=== PATIENT | female | born 1970 | race American Indian/Alaskan Native ===

== ENCOUNTER 2019-01-14 13:20 | Emergency (ER) | payer OTHER ==
[2019-01-14 13:27] VITALS: BP 180/95
--- NOTE | 2019-01-14 13:40 | Emergency Department Report ---
ED Recheck HPI - General Chief Complaint: Medical Clearance Stated Complaint: HBP/DIZZY Time Seen by Provider: 01/14/19 13:26 Source: patient Mode of arrival: Ambulatory Limitations: No Limitations - History of Present Illness Initial Comments: This is a 48-year-old female nontoxic, well in appearance with no signs of distress noted that presents with hypertension medication refill. Patient stated she has been out of her Norvasc 5 mg daily, Lisinopril 20 mg daily, and Metropolol 25 mg daily. Patient denies any symptoms. Patient denies any facial swelling, fever, chills, headache, nausea, vomiting, chest pain or shortness of breathe. Patient denies any allergies. -: days(s) (2) Returns Today for: request for prescription Symptoms Since Prior Visit: no new symptoms, improved Associated Symptoms: none. denies: fever, chills, chest pain, shortness of breath, rash, malaise, nasuea, abdominal pain - Related Data Previous Rx's Medication Instructions Recorded Last Taken Type Lisinopril 20 mg PO DAILY #30 tablet 01/14/19 Unknown Rx Metoprolol [Lopressor TAB] 25 mg PO DAILY #30 tablet 01/14/19 Unknown Rx amLODIPine [Norvasc] 5 mg PO DAILY #30 tab 01/14/19 Unknown Rx Allergies Allergy/AdvReac Type Severity Reaction Status Date / Time No Known Allergies Allergy Unverified 01/14/19 13:23 ED Review of Systems ROS: Stated complaint: HBP/DIZZY Other details as noted in HPI Constitutional: denies: chills, fever Eyes: denies: eye pain, eye discharge, vision change ENT: denies: ear pain, throat pain Respiratory: denies: cough, shortness of breath, wheezing Cardiovascular: denies: chest pain, palpitations Endocrine: no symptoms reported Gastrointestinal: denies: abdominal pain, nausea, diarrhea Genitourinary: denies: urgency, dysuria, discharge Musculoskeletal: denies: back pain, joint swelling, arthralgia Skin: denies: rash, lesions Neurological: denies: headache, weakness, paresthesias Psychiatric: denies: anxiety, depression Hematological/Lymphatic: denies: easy bleeding, easy bruising ED Past Medical Hx - Past Medical History Previous Medical History?: Yes Hx Hypertension: Yes Hx Headaches / Migraines: Yes - Surgical History Past Surgical History?: Yes Additional Surgical History: C section - Social History Smoking Status: Never Smoker Substance Use Type: None - Medications Home Medications: Home Medications Medication Instructions Recorded Confirmed Last Taken Type Lisinopril 20 mg PO DAILY #30 tablet 01/14/19 Unknown Rx Metoprolol [Lopressor TAB] 25 mg PO DAILY #30 tablet 01/14/19 Unknown Rx amLODIPine [Norvasc] 5 mg PO DAILY #30 tab 01/14/19 Unknown Rx ED Physical Exam - General Limitations: No Limitations General appearance: alert, in no apparent distress - Head Head exam: Present: atraumatic, normocephalic - Eye Eye exam: Present: normal appearance - Neck Neck exam: Present: normal inspection, full ROM. Absent: tenderness, meningismus, lymphadenopathy - Respiratory Respiratory exam: Present: normal lung sounds bilaterally. Absent: respiratory distress, wheezes, rales, rhonchi, stridor, chest wall tenderness, accessory muscle use, decreased breath sounds, prolonged expiratory - Cardiovascular Cardiovascular Exam: Present: regular rate, normal rhythm, normal heart sounds. Absent: systolic murmur, diastolic murmur, rubs, gallop - Extremities Exam Extremities exam: Present: normal inspection, full ROM - Back Exam Back exam: Present: normal inspection, full ROM - Neurological Exam Neurological exam: Present: alert, oriented X3 - Psychiatric Psychiatric exam: Present: normal affect, normal mood - Skin Skin exam: Present: warm, dry, intact, normal color. Absent: rash ED Course Vital Signs 01/14/19 13:26 Temperature 97.7 F Pulse Rate 80 Respiratory 20 Rate Blood Pressure 180/95 O2 Sat by Pulse 100 Oximetry - Reevaluation(s) Reevaluation #1: 01/14/19 13:42 Patient is speaking in full sentences with no signs of distress noted. ED Recheck MDM - Medical Decision Making As per ACEP, does not recommened treatment in the ED due to asymptotic and has PCP. Patient was instructed to Follow-up with a primary care doctor in 3-5 days or if symptoms worsen and continue return to emergency room as soon as possible. At time of discharge, the patient does not seem toxic or ill in ap pearance. No acute signs of distress noted. Patient agrees to discharge treatment plan of care. No further questions noted by the patient. Critical care attestation.: If time is entered above; I have spent that time in minutes in the direct care of this critically ill patient, excluding procedure time. ED Disposition Clinical Impression: Medication refill Hypertension Qualifiers: Hypertension type: unspecified Qualified Code(s): I10 - Essential (primary) hypertension Disposition: TO HOME OR SELFCARE Is pt being admited?: No Does the pt Need Aspirin: No Condition: Stable Instructions: Hypertension (ED), Low Sodium Diet (ED) Additional Instructions: Follow-up with a primary care doctor in 3-5 days or if symptoms worsen and continue return to emergency room as soon as possible. Prescriptions: Lisinopril 20 mg PO DAILY #30 tablet Metoprolol [Lopressor TAB] 25 mg PO DAILY #30 tablet amLODIPine [Norvasc] 5 mg PO DAILY #30 tab Referrals: PRIMARY CAREMD [Referring] - 3-5 Days STACY ASH MD [Staff Physician] - 3-5 Days [facility] [Outside] - 3-5 Days [facility] [Outside] - 3-5 Days Forms: Work/School Release Form(ED)
== END 2019-01-14 13:58 | disposition home or self-care (01) ==
LOC: ED 13:20
DX: I10 Essential (primary) hypertension (principal); Z76.0 Encounter for issue of repeat prescription
CPT/HCPCS: 99282

== ENCOUNTER 2019-06-09 20:39 | Emergency (ER) | payer OTHER ==
--- NOTE | 2019-06-09 20:50 | Emergency Department Report ---
Blank Doc - Documentation Documentation: This is a 48-year-old female that presents with uncontrolled htn and bilatreal tingling sensation to hands. This initial assessment/diagnostic orders/clinical plan/treatment(s) is/are subject to change based on patient's health status, clinical progression and re- assessment by fellow clinical providers in the ED. Further treatment and workup at subsequent clinical providers discretion. Patient/guardians urged not to elope from the ED as their condition may be serious if not clinically assessed and managed. Initial orders include: 1- Patient sent to [facility] for further evaluation and treatment 2- labs
[2019-06-09 21:07] VITALS: BP 141/90
[2019-06-09 21:09] LABS: Basophils # (Auto) 0.1 K/mm3 (0.0-0.1); Basophils % (Auto) 0.9 % (0.0-1.8); Eosinophils # (Auto) 0.3 K/mm3 (0.0-0.4); Eosinophils % (Auto) 3.1 % (0.0-4.3); Hematocrit 34.2 % (30.3-42.9); Hemoglobin 11.4 gm/dl (10.1-14.3); Lymphocytes # (Auto) 3.3 K/mm3 (1.2-5.4); Lymphocytes % (Auto) 40.6 % (13.4-35.0); Mean Corpuscular HGB Conc 33 % (30-34); Mean Corpuscular Volume 89 fl (79-97); Monocytes # (Auto) 0.8 K/mm3 (0.0-0.8); Monocytes % (Auto) 9.5 % (0.0-7.3); Platelet Count 315 K/mm3 (140-440); Red Blood Count 3.83 M/mm3 (3.65-5.03); Red Cell Distribution Width 14.5 % (13.2-15.2)
[2019-06-09 21:55] LABS: BUN/Creatinine Ratio 19; Blood Urea Nitrogen 15 mg/dL (7-17); Calcium 9.6 mg/dL (8.4-10.2); Hemolysis Index 4
--- NOTE | 2019-06-09 23:06 | Emergency Department Report ---
ED General Adult HPI - General Chief complaint: High BP Stated complaint: HBP,TINGLING IN BOTH HANDS Time Seen by Provider: 06/09/19 20:50 Source: patient Mode of arrival: Ambulatory Limitations: No Limitations - History of Present Illness Initial comments: 48-year-old -[place] female presents to the emergency room stating she ran out of her blood pressure medications 3 days ago. Patient also complains of tingling to hands and her to for 3 weeks. Patient reports that she has a history of migraines and hypertension. Denies any shortness of breathing or chest pain. Onset/Timin -: week(s) Location: upper extremity (hands tingling and hurst) Radiation: non-radiation Severity scale (0 -10): 8 Quality: aching Consistency: intermittent Associated Symptoms: denies other symptoms. denies: chest pain, cough, shortness of breath Treatments Prior to Arrival: none - Related Data Previous Rx's Medication Instructions Recorded Last Taken Type Lisinopril 20 mg PO DAILY #30 tablet 01/14/19 Unknown Rx Metoprolol [Lopressor TAB] 25 mg PO DAILY #30 tablet 01/14/19 Unknown Rx amLODIPine [Norvasc] 5 mg PO DAILY #30 tab 01/14/19 Unknown Rx amLODIPine [Norvasc] 5 mg PO DAILY 14 Days #14 tab 06/09/19 Unknown Rx Allergies Allergy/AdvReac Type Severity Reaction Status Date / Time No Known Allergies Allergy Unverified 01/14/19 13:23 ED Review of Systems ROS: Stated complaint: HBP,TINGLING IN BOTH HANDS Other details as noted in HPI Comment: All other systems reviewed and negative ED Past Medical Hx - Past Medical History Previous Medical History?: Yes Hx Hypertension: Yes Hx Headaches / Migraines: Yes - Surgical History Past Surgical History?: Yes Additional Surgical History: C section x3. tonsil - Social History Smoking Status: Never Smoker Substance Use Type: None - Medications Home Medications: Home Medications Medication Instructions Recorded Confirmed Last Taken Type Lisinopril 20 mg PO DAILY #30 tablet 01/14/19 Unknown Rx Metoprolol [Lopressor TAB] 25 mg PO DAILY #30 tablet 01/14/19 Unknown Rx amLODIPine [Norvasc] 5 mg PO DAILY #30 tab 01/14/19 Unknown Rx amLODIPine [Norvasc] 5 mg PO DAILY 14 Days #14 tab 06/09/19 Unknown Rx ED Physical Exam - General Limitations: No Limitations General appearance: alert, in no apparent distress - Head Head exam: Present: atraumatic, normocephalic - Eye Eye exam: Present: normal appearance - ENT ENT exam: Present: mucous membranes moist - Neck Neck exam: Present: normal inspection ED Course Vital Signs 06/09/19 20:49 Temperature 98.1 F Pulse Rate 81 Respiratory 18 Rate Blood Pressure 141/90 O2 Sat by Pulse 100 Oximetry ED Medical Decision Making - Lab Data Result diagrams: 06/09/19 20:59 06/09/19 20:59 - Medical Decision Making 48-year-old -[place] female presents to the emergency room stating she ran out of her blood pressure medications 3 days ago. Patient also complains of tingling to hands and her to for 3 weeks. Patient reports that she has a history of migraines and hypertension. Denies any shortness of breathing or chest pain. Prescription for amlodipine 5 mg for 2 weeks and patient is to follow-up at the [facility] which is her primary care provider. Patient can take Tylenol and/or Motrin for finger cramping and pain with bending. Patient is to follow-up with her primary care provider to discuss this new problem. Patient's labs were all stable. Critical care attestation.: If time is entered above; I have spent that time in minutes in the direct care of this critically ill patient, excluding procedure time. ED Disposition Clinical Impression: HTN (hypertension), Pain in finger of both hands Disposition: DC-01 TO HOME OR SELFCARE Is pt being admited?: No Does the pt Need Aspirin: No Condition: Stable Instructions: Hypertension (ED), Osteoarthritis (ED) Additional Instructions: Please try taking Tylenol and/or Motrin for pain in hands and fingers. Take your blood pressure medication and to follow-up which her primary care provider. Prescriptions: amLODIPine [Norvasc] 5 mg PO DAILY 14 Days #14 tab Referrals: [facility] [Outside] - 3-5 Days
== END 2019-06-09 23:10 | disposition home or self-care (01) ==
LOC: ED 20:39
DX: I10 Essential (primary) hypertension (principal); R20.2 Paresthesia of skin; M79.645 Pain in left finger(s); M79.646 Pain in unspecified finger(s); G43.909 Migraine, unspecified, not intractable, without status migrainosus
CPT/HCPCS: 36415; 80048; 85025

== ENCOUNTER 2019-07-13 16:53 | Observation (INO) | payer OTHER ==
--- NOTE | 2019-07-13 17:42 | Event Note ---
ED Screening Note ED Screening Note: pt states she has tingling on the left side that began yesterday around 1PM never had before pain under the left breast, also tingling no SOB, no N/V, no vision changes, no weakness LNMP: july 04, tubal ligation PMHx HTN, migraines takes amlodipine and lisinopril non smoker no drinker no drug use This initial assessment/diagnostic orders/clinical plan/treatment(s) is/are subject to change based on patients health status, clinical progression and re- assessment by fellow clinical providers in the ED. Further treatment and workup at subsequent clinical providers discretion. Patient/guardian urged not to elope from the ED as their condition may be serious if not clinically assessed and man aged. Initial orders include: labs, XR chest, CT head, EKG, UA
[2019-07-13 18:21] LABS: Basophils # (Auto) 0.1 K/mm3 (0.0-0.1); Basophils % (Auto) 0.6 % (0.0-1.8); Eosinophils # (Auto) 0.2 K/mm3 (0.0-0.4); Eosinophils % (Auto) 2.6 % (0.0-4.3); Hematocrit 37.6 % (30.3-42.9); Hemoglobin 12.4 gm/dl (10.1-14.3); Lymphocytes # (Auto) 2.9 K/mm3 (1.2-5.4); Mean Corpuscular HGB Conc 33 % (30-34); Mean Corpuscular Volume 88 fl (79-97); Monocytes # (Auto) 0.7 K/mm3 (0.0-0.8); Monocytes % (Auto) 7.2 % (0.0-7.3); Platelet Count 342 K/mm3 (140-440); Red Blood Count 4.29 M/mm3 (3.65-5.03); Red Cell Distribution Width 14.4 % (13.2-15.2)
--- NOTE | 2019-07-13 18:21 | XRay Report ---
CHEST one VIEWS INDICATION: CP. COMPARISON: None. FINDINGS: Support devices: None. Heart: Within normal limits. Lungs/Pleura: No acute air space or interstitial disease. No significant pleural effusion. IMPRESSION: No acute findings. Signer Name: Jaydon Chawla MD Signed: 07/13/2019 6:17 PM Workstation Name: [id number]
[2019-07-13 18:26] LABS: Bilirubin,Urine NEG (Negative); Blood,Urine SM (Negative); Color,Urine Yellow (Yellow); Mucus,Urine FEW /HPF; Protein,Urine <15 mg/dL mg/dL (Negative); Urobilinogen,Urine < 2.0 mg/dL (<2.0); WBC,Urine < 1.0 /HPF (0.0-6.0)
[2019-07-13 18:47] LABS: Alanine Aminotransferase 10 units/L (7-56); BUN/Creatinine Ratio 11; Blood Urea Nitrogen 8 mg/dL (7-17); Calcium 9.5 mg/dL (8.4-10.2); Hemolysis Index 9
--- NOTE | 2019-07-13 20:32 | Emergency Department Report ---
ED Neuro Deficit HPI - General Chief Complaint: Chest Pain Stated Complaint: L SIDE/BREAST PAIN Time Seen by Provider: 07/13/19 17:39 Source: patient Mode of arrival: Ambulatory Limitations: No Limitations - History of Present Illness Initial Comments: 48-year-old female with a past medical history of obesity, hypertension, and migraines status post tubal ligation with LMP 07/04 presents to the hospital with complaints of left-sided tingling sensation to her arm and leg as well as left sharp chest pain under her breast. Both symptoms are constant and ongoing since yesterday. Patient recently returned from a trip to [place] yesterday. She denies any head injury, neck pain, headache, nausea, vomiting, diaphoresis, cough, fever, shortness of breath, history of PE/DVT, calf tenderness, or leg edema. Patient denies any weakness, difficulty speaking, or ambulating. Patient was here as per medical record review patient was here 06/09/2019 comp laining of bilateral hand tingling and reports that she has a history of carpal tunnel syndrome. Patient took 2 baby aspirins prior to arrival. - Related Data Home Medications: Previous Rx's Medication Instructions Recorded Last Taken Type Lisinopril 20 mg PO DAILY #30 tablet 01/14/19 Unknown Rx Metoprolol [Lopressor TAB] 25 mg PO DAILY #30 tablet 01/14/19 Unknown Rx amLODIPine [Norvasc] 5 mg PO DAILY #30 tab 01/14/19 Unknown Rx amLODIPine [Norvasc] 5 mg PO DAILY 14 Days #14 tab 06/09/19 Unknown Rx Allergies/Adverse Reactions: Allergies Allergy/AdvReac Type Severity Reaction Status Date / Time No Known Allergies Allergy Unverified 01/14/19 13:23 ED Review of Systems ROS: Stated complaint: L SIDE/BREAST PAIN Other details as noted in HPI Comment: All other systems reviewed and negative ED Past Medical Hx - Past Medical History Previous Medical History?: Yes Hx Hypertension: Yes Hx Headaches / Migraines: Yes - Surgical History Past Surgical History?: Yes Additional Surgical History: C section x3. tonsil - Social History Smoking Status: Never Smoker Substance Use Type: None - Medications Home Medications: Home Medications Medication Instructions Recorded Confirmed Last Taken Type Lisinopril 20 mg PO DAILY #30 tablet 01/14/19 Unknown Rx Metoprolol [Lopressor TAB] 25 mg PO DAILY #30 tablet 01/14/19 Unknown Rx amLODIPine [Norvasc] 5 mg PO DAILY #30 tab 01/14/19 Unknown Rx amLODIPine [Norvasc] 5 mg PO DAILY 14 Days #14 tab 06/09/19 Unknown Rx ED Neuro Physical Exam - General Limitations: No Limitations Suspected Stroke: No - NIHSS Assessment Interval: Baseline 1a. Level of Consciousness: alert/keenly responsive 1b. LOC Questions: answers both correctly 1c. LOC Commands: performs tasks correctly 2. Best Gaze: normal 3. Visual: no visual loss 4. Facial Palsy: normal symmetrical movement 5b. Motor Arm Right: no drift 5a. Motor Arm Left: no drift 6a. Motor Leg Left: no drift 6b. Motor Leg Right: no drift 7. Limb Ataxia: absent 8. Sensory: normal 9. Best Language: no aphasia 10. Dysarthria: normal 11. Extinction/Inattention: no abnormality Total Score: 0 Stroke Severity: No Stroke Symptoms - Other Other exam information: Gen.: No acute distress Head: Atraumatic Eyes: Normal appearance, extraocular movements intact ENT: Moist mucous membranes Neck: Normal appearance, no posterior midline tenderness, no meningismus Chest: Clear to auscultation bilaterally Cardiovascular: Regular rate and rhythm reproducible anterior chest wall pain under her breast Abdomen: Normal appearance, soft, nontender, no rebound or guarding, normal bowel sounds Back: Normal appearance, nontender Extremity: Full range of motion, normal appearance Neuro: Alert and oriented 3, clear speech, no focal motor or sensory deficit although patient reports paresthesias he has equal sensation to light touch and pinprick bilaterally. Psychiatric: Appropriate Skin: No rash ED Course Vital Signs 07/13/19 07/13/19 17:41 22:39 Temperature 98.2 F 98.1 F Pulse Rate 94 H 67 Respiratory 18 18 Rate Blood Pressure 133/75 Blood Pressure 138/77 [Left] O2 Sat by Pulse 100 100 Oximetry - Consultations Consultation #1: 07/13/19 pt was examined by tele neuro, recommends MRI of the head and cervical spine. Patient will be admitted - Lab Data Result diagrams: 07/13/19 18:07 07/13/19 18:07 Lab Results 07/13/19 07/13/19 07/13/19 Range/Units 18:07 18:07 21:34 WBC 9.0 (4.5-11.0) K/mm3 RBC 4.29 (3.65-5.03) M/mm3 Hgb 12.4 (10.1-14.3) gm/dl Hct 37.6 (30.3-42.9) % MCV 88 (79-97) fl MCH 29 (28-32) pg MCHC 33 (30-34) % RDW 14.4 (13.2-15.2) % Plt Count 342 (140-440) K/mm3 Lymph % (Auto) 32.0 (13.4-35.0) % Dixon % (Auto) 7.2 (0.0-7.3) % Eos % (Auto) 2.6 (0.0-4.3) % Baso % (Auto) 0.6 (0.0-1.8) % Lymph # 2.9 (1.2-5.4) K/mm3 Dixon # 0.7 (0.0-0.8) K/mm3 Eos # 0.2 (0.0-0.4) K/mm3 Baso # 0.1 (0.0-0.1) K/mm3 Seg Neutrophils % 57.6 (40.0-70.0) % Seg Neutrophils # 5.2 (1.8-7.7) K/mm3 Sodium 135 L (137-145) mmol/L Potassium 4.2 (3.6-5.0) mmol/L Chloride 102.3 (98-107) mmol/L Carbon Dioxide 25 (22-30) mmol/L Anion Gap 12 mmol/L BUN 8 (7-17) mg/dL Creatinine 0.7 (0.7-1.2) mg/dL Estimated GFR > 60 ml/min BUN/Creatinine Ratio 11 % Glucose 108 H (65-100) mg/dL Calcium 9.5 (8.4-10.2) mg/dL Total Bilirubin 0.90 (0.1-1.2) mg/dL AST 16 (5-40) units/L ALT 10 (7-56) units/L Alkaline Phosphatase 49 (35-129) units/L Troponin T < 0.010 < 0.010 (0.00-0.029) ng/mL Total Protein 6.9 (6.3-8.2) g/dL Albumin 4.0 (3.9-5) g/dL Albumin/Globulin Ratio 1.4 % Urine Color (Yellow) Urine Turbidity (Clear) Urine pH (5.0-7.0) Ur Specific Crowley (1.003-1.030) Urine Protein (Negative) mg/dL Urine Glucose (UA) (Negative) mg/dL Urine Ketones (Negative) mg/dL Urine Blood (Negative) Urine Nitrite (Negative) Urine Bilirubin (Negative) Urine Urobilinogen (<2.0) mg/dL Ur Leukocyte Esterase (Negative) Urine WBC (Auto) (0.0-6.0) /HPF Urine RBC (Auto) (0.0-6.0) /HPF U Epithel Cells (Auto) (0-13.0) /HPF Urine Mucus /HPF 07/13/19 Range/Units Unknown WBC (4.5-11.0) K/mm3 RBC (3.65-5.03) M/mm3 Hgb (10.1-14.3) gm/dl Hct (30.3-42.9) % MCV (79-97) fl MCH (28-32) pg MCHC (30-34) % RDW (13.2-15.2) % Plt Count (140-440) K/mm3 Lymph % (Auto) (13.4-35.0) % Dixon % (Auto) (0.0-7.3) % Eos % (Auto) (0.0-4.3) % Baso % (Auto) (0.0-1.8) % Lymph # (1.2-5.4) K/mm3 Dixon # (0.0-0.8) K/mm3 Eos # (0.0-0.4) K/mm3 Baso # (0.0-0.1) K/mm3 Seg Neutrophils % (40.0-70.0) % Seg Neutrophils # (1.8-7.7) K/mm3 Sodium (137-145) mmol/L Potassium (3.6-5.0) mmol/L Chloride (98-107) mmol/L Carbon Dioxide (22-30) mmol/L Anion Gap mmol/L BUN (7-17) mg/dL Creatinine (0.7-1.2) mg/dL Estimated GFR ml/min BUN/Creatinine Ratio % Glucose (65-100) mg/dL Calcium (8.4-10.2) mg/dL Total Bilirubin (0.1-1.2) mg/dL AST (5-40) units/L ALT (7-56) units/L Alkaline Phosphatase (35-129) units/L Troponin T (0.00-0.029) ng/mL Total Protein (6.3-8.2) g/dL Albumin (3.9-5) g/dL Albumin/Globulin Ratio % Urine Color Yellow (Yellow) Urine Turbidity Slightly-cloudy (Clear) Urine pH 6.0 (5.0-7.0) Ur Specific Crowley 1.020 (1.003-1.030) Urine Protein <15 mg/dl (Negative) mg/dL Urine Glucose (UA) Neg (Negative) mg/dL Urine Ketones Neg (Negative) mg/dL Urine Blood Sm (Negative) Urine Nitrite Neg (Negative) Urine Bilirubin Neg (Negative) Urine Urobilinogen < 2.0 (<2.0) mg/dL Ur Leukocyte Esterase Neg (Negative) Urine WBC (Auto) < 1.0 (0.0-6.0) /HPF Urine RBC (Auto) 2.0 (0.0-6.0) /HPF U Epithel Cells (Auto) 9.0 (0-13.0) /HPF Urine Mucus Few /HPF - EKG Data -: EKG Interpreted by Mo EKG shows normal: sinus rhythm, ST-T waves (nos coreen) Rate: normal (81) When compared to previous EKG there are: previous EKG unavailable - Radiology Data Radiology results: report reviewed CHEST one VIEWS INDICATION: CP. COMPARISON: None. FINDINGS: Support devices: None. Heart: Within normal limits. Lungs/Pleura: No acute air space or interstitial disease. No significant pleural effusion. IMPRESSION: No acute findings. CT HEAD WITHOUT CONTRAST INDICATION / CLINICAL INFORMATION: tingling on left side. Paresthesias. TECHNIQUE: All CT scans at this location are performed using CT dose reduction for ALARA by means of automated exposure control. COMPARISON: None available. FINDINGS: HEMORRHAGE: No evidence of intracranial hemorrhage or extra-axial fluid collection. EXTRA-AXIAL SPACES: Cortical sulci, sylvian fissures and basilar cisterns have an unremarkable appearance. VENTRICULAR SYSTEM: The ventricular system is of normal size and configuration. CEREBRAL PARENCHYMA: No areas of abnormal brain parenchymal attenuation are identified. There is no indication of recent infarction. MIDLINE SHIFT OR HERNIATION: There is no mass effect. CEREBELLUM / BRAINSTEM: Brainstem and cerebellum have an unremarkable appearance. INTRACRANIAL VESSELS:No abnormalities are identified on this noncontrast head CT. ORBITS: visualized portions of the orbits have an unremarkable appearance. SOFT TISSUES of HEAD: No significant abnormality. CALVARIUM: Evaluation of bone windows reveals no abnormalities. PARANASAL SINUSES / MASTOID AIR CELLS: Paranasal sinuses are free from inflammatory mucosal disease. Mastoid air cells are normally pneumatized. IMPRESSION: 1. Normal head CT without contrast. - Medical Decision Making Patient has a Perc PE score of 0 airflow low risk for PE. No DVT symptoms or shortness of breath. Patient's pain is reproducible with 2 negative enzymes and normal EKG. Case discussed with telemetry neuro regarding left-sided paresthesias since yesterday. I did not elicit any focal sensory or motor deficit. He evaluated patient. He recommends the patient be admitted to the hospital for MRI head and cervical spine. Case discussed with hospitalist for admission. - Differential Diagnosis herniated disc, CVA, costochondritis, PE, TN Critical Care Time: No Critical care attestation.: If time is entered above; I have spent that time in minutes in the direct care of this critically ill patient, excluding procedure time. ED Disposition Clinical Impression: Arm paresthesia, left, Chest wall pain Disposition: -09 OP ADMIT IP TO THIS HOSP Is pt being admited?: Yes Condition: Stable Time of Disposition: 23:16 (Dr Arias/hosp)
--- NOTE | 2019-07-13 20:48 | Cat Scan Report ---
CT HEAD WITHOUT CONTRAST INDICATION / CLINICAL INFORMATION: tingling on left side. Paresthesias. TECHNIQUE: All CT scans at this location are performed using CT dose reduction for ALARA by means of automated e xposure control. COMPARISON: None available. FINDINGS: HEMORRHAGE: No evidence of intracranial hemorrhage or extra-axial fluid collection. EXTRA-AXIAL SPACES: Cortical sulci, sylvian fissures and basilar cisterns have an unremarkable appear ance. VENTRICULAR SYSTEM: The ventricular system is of normal size and configuration. CEREBRAL PARENCHYMA: No areas of abnormal brain parenchymal attenuation are identified. There is no i ndication of recent infarction. MIDLINE SHIFT OR HERNIATION: There is no mass effect. CEREBELLUM / BRAINSTEM: Brainstem and cerebellum have an unremarkable appearance. INTRACRANIAL VESSELS:No abnormalities are identified on this noncontrast head CT. ORBITS: visualized portions of the orbits have an unremarkable appearance. SOFT TISSUES of HEAD: No significant abnormality. CALVARIUM: Evaluation of bone windows reveals no abnormalities. PARANASAL SINUSES / MASTOID AIR CELLS: Paranasal sinuses are free from inflammatory mucosal disease. Mastoid air cells are normally pneumatized. IMPRESSION: 1. Normal head CT without contrast. Signer Name: Tc Hansen MD Signed: 07/13/2019 8:44 PM Workstation Name: [id number]
[2019-07-13] MEDS ORDERED: ASPIRIN 325 MG TAB PO ONE (23:17)
[2019-07-14] MEDS ORDERED: MORPHINE 2 MG/1 ML INJ IV PRN (00:31)
[2019-07-14] MEDS ORDERED: ONDANSETRON 4 MG/2 ML INJ IV PRN (00:31)
[2019-07-14] MEDS ORDERED: ACETAMINOPHEN 325 MG TAB PO PRN (00:31)
--- NOTE | 2019-07-14 04:44 | History and Physical Report ---
CHIEF COMPLAINT: Left-sided tingling and numbness. HISTORY OF PRESENTING ILLNESS: The patient is a 48-year-old female who said she started having tingling and numbness on the left upper limb and left lower limb going on for about 24 days. The patient says she also has pain on the left lateral chest wall area. They denied any history of shortness of breath and denied history of dizziness or altered mental status. There is no history of low back pain and no history of headache. The patient also denied history of shortness of breath and presented for evaluation. PAST MEDICAL HISTORY: Pertinent for hypertension and migraine headaches. PAST SURGICAL HISTORY: Pertinent for C-sections x 3 and tonsillar surgery. FAMILY HISTORY: Noncontributory. SOCIAL HISTORY: The patient does not smoke, does not drink alcohol and does not use illicit drugs. MEDICATIONS: The patient is on lisinopril 20 mg by mouth daily, metoprolol 25 mg by mouth daily, Norvasc 5 mg by mouth daily. ALLERGIES: There are no known drug allergies. REVIEW OF SYSTEMS: CONSTITUTIONAL: There is no fever, no chills, no diaphoresis. HEENT: There is no headache or sore throat. CARDIOVASCULAR SYSTEM: There is no chest pain or orthopnea. RESPIRATORY SYSTEM: There is no shortness of breath or cough. GASTROINTESTINAL SYSTEM: There is no nausea, no vomiting, no abdominal pain, diarrhea or constipation. NEUROLOGICAL SYSTEM: There is numbness and tingling sensation on the left upper and left lower limbs and there is no dizziness and there is no altered mental status. MUSCULOSKELETAL SYSTEM: There is no joint pain or swelling, but there is pain in the left lateral chest wall area. DERMATOLOGICAL SYSTEM: There is no skin rash or itching. GENITOURINARY SYSTEM: There is no dysuria, hematuria, or flank pain. Rest of system review is normal. PHYSICAL EXAMINATION: GENERAL: At the time of exam, the patient was found to be alert, oriented x 3, and not in acute distress. VITAL SIGNS: Show temperature of 98.2 degrees Fahrenheit, pulse of 94, respirations 18, blood pressure 133/75, O2 sat of 100% on room air. HEENT: Showed pupils to be equal, round, reactive to light and accommodating. Extraocular muscles are intact. NECK: Supple with no JVD or carotid bruit. CARDIOVASCULAR SYSTEM: Showed normal first and second heart sounds with no gallops or murmurs. RESPIRATORY SYSTEM: Showed good air entry on both sides of the lungs with no abnormal breath sounds. GASTROINTESTINAL SYSTEM: Showed abdomen to be full, soft, nontender with no organomegaly or rigidity. NEUROLOGIC: Shows no focal deficit. MUSCULOSKELETAL SYSTEM: Showed no joint swelling or tenderness. DERMATOLOGICAL SYSTEM: Showed no skin rash. GENITOURINARY SYSTEM: Showing no costovertebral angle tenderness. PERTINENT LABORATORY AND IMAGING STUDIES: The patient had CT of the head without contrast done that shows normal head CT with no abnormalities. The patient also had chest x-ray done and chest x-ray shows no acute findings. Lab results, the patient had CBC done that came back unremarkable. The patient's chemistry shows slight decrease in sodium level of 135, otherwise unremarkable. The patient's urinalysis was unremarkable. DIAGNOSES: 1. Left-sided paresthesia. 2. Left chest wall pain. PLAN OF CARE: 1. The patient will be placed on observation in the medical surgical vora. 2. The patient will have MRI of the brain without contrast and MRI of the cervical vertebrae without contrast as recommended by tele neurologist. 3. The patient will have Neurology consult with Dr. Juan Portillo for management of the left-sided paresthesia. 4. The patient will have cardiac enzymes involving troponin, total CK, and CK-MB checked every 6 hours x 2 more levels because of left chest wall pain. 5. The patient will have physical therapy consult in the morning for evaluation and treatment. 6. The patient will be on aspirin 325 mg by mouth daily and will be on Tylenol 650 mg by mouth every 4 hours for fever and headache. 7. The patient will be on morphine 2 mg every 3 hours IV as needed for pain. 8. The patient will be on nitro paste half inch to anterior chest wall t.i.d. 9. The patient will be on Zofran 4 mg IV every 8 hours for nausea and vomiting. JOB# [id number] OCN/NTS
[2019-07-14] MEDS ORDERED: ALPRAZolam 1 MG TAB PO ONE (08:07)
[2019-07-14] MEDS ORDERED: ALPRAZolam 1 MG TAB ONE (08:14)
[2019-07-14 08:18] LABS: Creatine Kinase MB 1.9 ng/mL (0.0-4.0)
[2019-07-14] MEDS ORDERED: ASPIRIN 325 MG TAB PO SCH (10:00)
[2019-07-14] MEDS: NITROGLYCERIN 2% OINT 1 GM TP SCH ×3 (10:26→18:14)
--- NOTE | 2019-07-14 10:46 | Magnetic Resonance Report ---
MRI BRAIN 07/14/2019 INDICATION / CLINICAL INFORMATION: MAIN: LEFT SIDED PARASTHESIA, DIZZINESS. TECHNIQUE: Multiplanar, multisequence MR images of the brain were obtained. COMPARISON: None available. FINDINGS: BRAIN / INTRACRANIAL CONTENTS: Unenhanced MR images of the brain demonstrate no evidence of acute int racranial abnormality. Ventricles and sulci are normal in size and shape. There is no evidence of ischemic injury, demyelination, hemorrhage, or mass. There are no abnormal ex tra-axial fluid collections. EXTRACRANIAL: Unremarkable CRANIOCERVICAL JUNCTION: No significant abnormality. VASCULAR FLOW-VOIDS: No significant abnormality. IMPRESSION: Negative unenhanced MRI of the brain. Signer Name: Keanu Lincoln MD Signed: 07/14/2019 10:41 AM Workstation Name: [email or web address]
--- NOTE | 2019-07-14 10:48 | Magnetic Resonance Report ---
MRI CERVICAL SPINE 07/14/2019 INDICATION / CLINICAL INFORMATION: LEFT SIDED PARASTHESIA. COMPARISON: None available. FINDINGS: GENERAL OBSERVATIONS: Unenhanced MR images of the cervical spine were obtained. Straightening of cervical lordosis is present with the patient positioned for this exam. There is no evidence of spinal cord compression or intrinsic spinal cord abnormality. [id number] ANALYSIS: C7-T1: Unremarkable. C6-7: Diffuse disc bulging with superimposed right paracentral disc protrusion. There is some narrowi ng of the right side of the canal, flattening of the right ventral surface of spinal cord. There is n o evidence of direct nerve root compression. C5-6: Moderate symmetric diffuse disc bulging and canal narrowing. C4-5: Mild diffuse disc bulging and a shallow right paracentral disc protrusion, with no evidence of foraminal or nerve root impingement. C3-4: Moderate symmetric diffuse disc bulging. C2-3: Unremarkable. CRANIO-CERVICAL JUNCTION: Unremarkable. BONE MARROW: No significant abnormality. PARASPINAL SOFT TISSUES: No significant abnormality. IMPRESSION: Multilevel degenerative changes as detailed above. Signer Name: Keanu Lincoln MD Signed: 07/14/2019 10:43 AM Workstation Name: [id number]
--- NOTE | 2019-07-14 12:27 | Consultation ---
History of Present Illness Consult date: 07/14/19 Reason for Consult: Left sided paresthesia Chief complaint: Left sided paresthesia History of present illness: Patient is a 40-year-old woman with a history of hypertension, migraines, obesity. She states that on Saturday afternoon at around 1 PM, she began to experience paresthesias of the left arm and leg. Paresthesias have persisted since then, however have slightly decreased. She also states that yesterday she began to feel mild pain in the left breast region. Patient takes aspirin 81 mg daily. She states that her blood pressure medications were increased last week. Patient endorses that she has been under increased amount of stress due to her work recently. Past History Past Medical History: other (hypertension, migraines, obesity) Social history: no significant social history, lives with family Family history: no significant family history Medications and Allergies Allergies Allergy/AdvReac Type Severity Reaction Status Date / Time No Known Allergies Allergy Unverified 01/14/19 13:23 Home Medications Medication Instructions Recorded Confirmed Last Taken Type Lisinopril 20 mg PO DAILY #30 tablet 01/14/19 07/14/19 Unknown Rx Gabapentin [Neurontin] 300 mg PO Q8HR 07/14/19 07/14/19 Unknown History amLODIPine [Norvasc] 10 mg PO DAILY 07/14/19 07/14/19 Unknown History Active Meds: Active Medications Acetaminophen (Tylenol) 650 mg PO Q4H PRN PRN Reason: Headache Amlodipine Besylate (Norvasc) 10 mg PO DAILY [facility] Aspirin (Aspirin) 325 mg PO QDAY [facility] Last Admin: 07/14/19 10:26 Dose: 325 mg Documented by: Gabapentin (Neurontin) 300 mg PO Q8HR [facility] Lisinopril (Zestril) 20 mg PO DAILY [facility] Morphine Sulfate (Morphine) 2 mg IV Q3H PRN PRN Reason: Pain, Moderate (4-6) Nitroglycerin (Nitro-Bid 2%) 0.5 inch TP TIDNTG [facility]; Protocol Last Admin: 07/14/19 10:26 Dose: Not Given Documented by: Ondansetron HCl (Zofran) 4 mg IV Q8H PRN PRN Reason: Nausea And Vomiting Review of Systems All systems: negative Neurological: parathesias Physical Examination - Vital Signs Vital Signs: Vital Signs Temp Pulse Resp BP Pulse Ox 98.2 F 94 H 18 133/75 100 07/13/19 17:41 07/13/19 17:41 07/13/19 17:41 07/13/19 17:41 07/13/19 17:41 - Constitutional General appearance: comfortable - EENT EENT: Present: ATNC, PERRL, mucous membranes moist, hearing intact, vision intact - Respiratory Respiratory: Present: lungs clear, normal breath sounds - Cardiovascular Cardiovascular: Present: regular rate, normal S1, normal S2 Extremities: Present: no peripheral edema bilatateraly, no clubbing, cyanosis - Gastrointestinal Gastrointestinal: Present: normoactive bowel sounds, soft, non-tender - Integumentary Integumentary: Present: normal - Neurologic Cranial nerve examination: PERRL, EOMI, VFF, V1/V2/V3 grossly intact, face symmetric, tongue midline Speech examination: intact Sensorimotor examination: intact Detailed motor examination: full strength in all pradeep Motor examination - right side: 5/5: biceps, triceps, wrist flexion, wrist extension, 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, hip flexors, knee extensors, dorsiflexion, toe extension (EHL), plantarflexion Motor examination - left side: 5/5: biceps, triceps, wrist flexion, wrist extension, 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, hip flexors, knee extensors, dorsiflexion, toe extension (EHL), plantarflexion Detailed sensory examination: other (decreased on the left upper and lower e xtremity to light touch.) Reflexes: 2+: ankle, bicep, knee, tricep Cerebellar examination: other (bilaterally intact to [id number] and [id number]) - Musculoskeletal Musculoskeletal: Present: no fluid collection, no pain - Psychiatric Psychiatric: Present: mood/affect appropriate Results - Laboratory Findings CBC and BMP: 07/13/19 18:07 07/13/19 18:07 Abnormal Lab Findings: Abnormal Labs 07/13/19 18:07 Sodium 135 L Glucose 108 H Assessment and Plan Patient is a 40-year-old woman with a history of hypertension, migraines, obesity, who presents with left upper and lower extremity paresthesias for the past 2 days. According the patient's clinical findings, it is likely that the patient has conversion disorder, as there is no evidence of infarct on MRI. Further, MRI of cervical spine did not reveal any significant abnormality that would explain her current symptoms. Plan: 1. Left sided paresthesias: - Likely conversion disorder - MRI brain unremarkable - MRI Cervical spine revealed degenerative changes - Recommend for follow up with neurosurgery as outpatient for further management of cervical spine degenerative changes - no further workup recommended from neurologic standpoint - Will sign off. Please call with any questions. Thank you for allowing me to take part in the care of this patient. Juan Portillo MD Neurology
[2019-07-14] MEDS ORDERED: LISINOPRIL 20 MG TAB PO SCH (13:00)
[2019-07-14] MEDS ORDERED: amLODIPine 10 MG TAB PO SCH (13:00)
--- NOTE | 2019-07-14 13:33 | Event Note ---
Date: 07/14/19 Patient admitted under this morning for the management of paresthesia. Patient was seen and evaluated. Imaging were reviewed. Continue management as outlined in the H&P.
[2019-07-14 13:38] LABS: Creatine Kinase MB 1.7 ng/mL (0.0-4.0)
[2019-07-14] MEDS: GABAPENTIN 300 MG CAP PO SCH ×2 (13:41→22:01)
[2019-07-15] MEDS: GABAPENTIN 300 MG CAP PO SCH (06:12)
[2019-07-15] MEDS: NITROGLYCERIN 2% OINT 1 GM TP SCH (06:16)
--- NOTE | 2019-07-15 09:55 | Discharge Summary ---
Providers - Providers Date of Admission: 07/14/19 00:23 Attending physician: CORRIE HANDLEY MD 07/14/19 06:00 Consult to Physician [CONS] Routine Comment: Consulting Provider: LIYA KWAN Physician Instructions: Reason For Exam: LEFT SIDED PARASTHESIA Physical Therapy Evaluation and Treat [CONS] Routine Comment: Reason For Exam: LEFT SIDED PARATHESIA Primary care physician: [facility] Hospitalization Reason for admission: [facility] Condition: Stable Pertinent studies: CT, MRI head Hospital course: Patient is a 40-year-old woman with a history of hypertension, migraines, obesity. She states that on Saturday afternoon at around 1 PM, she began to experience paresthesias of the left arm and leg. Paresthesias have persisted since then, however have slightly decreased. She also states that yesterday she began to feel mild pain in the left breast region. Patient takes aspirin 81 mg daily. She states that her blood pressure medications were increased last week. Patient endorses that she has been under increased amount of stress due to her work recently. Patient was admitted and full workup was done and which was negative. patient was seen by neurology and said no CVA likely due to stress related. patient's symptoms resolved and discharged home. Patient was hemodynamically stable at the time of discharge. Disposition: DC-01 TO HOME OR SELFCARE Time spent for discharge: 32 minutes - Discharge Diagnoses (1) Arm paresthesia, left Status: Acute (2) Chest wall pain Status: Acute Core Measure Documentation - Palliative Care Palliative Care/ Comfort Measures: Not Applicable - Core Measures Any of the following diagnoses?: none Exam - Physical Exam Narrative exam: Not in cardiopulmonary distress. The patient is morbidly obese. Vital signs as documented. Head exam is unremarkable. No scleral icterus . Neck is without jugular venous distension, thyromegaly, or carotid bruits. Lungs are clear to auscultation. Cardiac exam reveals regular rate and Rhythm. First and second heart sounds normal. No murmurs, rubs or gallops. Abdominal exam reveals normal bowel sounds, no masses, no organomegaly and no aortic enlargement. Extremities are nonedematous and both femoral and pedal pulses are normal. 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 No focal weakness. - Constitutional Vitals: Temp Pulse Resp BP Pulse Ox 98.0 F 88 18 100/64 98 07/15/19 06:10 07/15/19 06:16 07/15/19 06:10 07/15/19 06:16 07/15/19 06:10 Plan Activity: no restrictions Weight Bearing Status: Full Weight Bearing Diet: low salt Follow up with: PRIMARY CARE, [Referring] - 3-5 Days
[2019-07-15] MEDS ORDERED: amLODIPine 5 MG TAB PO SCH (10:00)
[2019-07-15 11:20] VITALS: BP 112/68
== END 2019-07-15 13:55 | disposition home or self-care (01) ==
LOC: ED 16:53 → 3A 07-14 00:23
PROVIDERS: ADMIT Internal Medicine; ATTEND Internal Medicine
DX: R07.89 Other chest pain (principal); R20.2 Paresthesia of skin; I10 Essential (primary) hypertension; G43.909 Migraine, unspecified, not intractable, without status migrainosus; E66.9 Obesity, unspecified; Z68.41 Body mass index [BMI] 40.0-44.9, adult; Z98.891 History of uterine scar from previous surgery
CPT/HCPCS: 36415; 70450; 70551; 71045; 72141; 80053; 81001; 82550; 82553; 84484; 85025; 93005; 93010; 99284; G0378; 71046